=== PATIENT | female | born 1945 | race Caucasian/White ===

== ENCOUNTER 2017-10-04 10:46 | Inpatient (IN) | payer OTHER ==
[~2017-10-04] VITALS: Ht 162.6 cm; Wt 90.0 kg
[~2017-10-04 10:46] MED LIST: ALDACTONE25 MG PO; ALDACTONE50 MG PO; ASPIRIN81 M1 PO; BENICAR40 MG PO; BYSTOLIC10 MG PO; CARDIZEM CD,CA360 MG PO; CARDIZEM CD240 MG PO; CATAPRES-TTS 30.3 MG TD; CATAPRES-TTS 31 EACH TD; CATAPRES0.3 MG PO; CHILD ASPIRIN81 M1 PO; CHLORTHALIDONE25 MG PO; CIPROFLOXACIN500 M1 PO; CLONIDINE HCL0.1 MG PO; COLACE100 MG PO; CYMBALTA30 MG PO; CYMBALTA60 MG PO; Cardizem CD,Cartia X PO; Catapres-TTS 3 TD; DELTASONE10 MG PO; EFFIENT10 MG PO; EMS NITROSTAT0.4 M1 S; Ecotrin PO; Effient PO; FOLIC ACID; FOLVITE0.5 MG PO; HYGROTON25 MG PO; LABETALOL HCL200 MG PO; LABETALOL HCL300 MG PO; LASIX40 MG PO; LEVOFLOXACIN PO; LIVALO2 MG PO; Livalo PO; NIACIN100 MG PO; NITROGLYCERIN0.4 MG SL; NITROSTAT,NITR0.4 M1 SL; NORMODYNE,TRAN300 MG PO; OMEGA 3 1,0001 EACH PO; OMEGA-31000 MG PO; OXYCONTIN15 MG PO; PERCOCET 7.5-31 EACH PO; PHENERGAN12.5 M1 PO; PLAVIX75 MG PO; PRILOSEC20 MG PO; PROCARDIA10 MG PO; PROMETHAZINE12.5 M1 PO; PROVENTIL,2.5 MG/3 M IH; Proventil,Ventolin H IH; ROXICODONE15 MG PO; SINGULAIR10 MG PO; SPIRIVA1 INHALATI IH; Singulair PO; TRAMADOL HCL50 MG PO; TRICOR145 MG PO; Tylenol Regular Stre PO; VENTOLIN HFA18 GM IH; VENTOLIN17 GM IH; VYTORIN 10/41 TABLET PO; XANAX0.5 MG PO; XANAX1 MG PO; XANAX2 MG PO; Xanax PO; ZANTAC150 M1 PO; ZANTAC150 MG PO; ZANTAC300 MG PO; ZETIA10 MG PO; [UNRECOGNIZED DRUG - OTHER]
[2017-10-04 11:27] LABS: BASOPHIL (%) 0.4 % (0-1); EOSINOPHIL (%) 1.1 % (0-5); EOSINOPHIL COUNT 0.1 K/uL (0-0.3); HEMATOCRIT 29.5 % (36.0-46.0); HEMOGLOBIN 10.2 G/DL (11.9-15.5); IMMATURE GRANULOCYTE (%) 0.4 % (0.0-0.7); LYMPHOCYTE (%) 14.6 % (15-42); LYMPHOCYTE COUNT 1.1 K/uL (1.0-2.8); MCH 28.3 PG (29.0-34.0); MCHC 34.6 G/DL (30.0-36.0); MCV 81.9 FL (83-99); MONOCYTE (%) 8.5 % (3-12); MONOCYTE COUNT 0.6 K/uL (0-0.8); NEUTROPHIL COUNT 5.7 K/uL (1.8-6.4); PLATELET COUNT 249 K/uL (156-360); RBC DIS.WIDTH-CV 13.4 % (11.8-14.6); RBC DIS.WIDTH-SD 40.1 % (39-53); WHITE BLOOD COUNT 7.5 K/uL (4.1-10.2)
[2017-10-04 11:36] LABS: INTER. NORMALIZED RATIO 1.1
[2017-10-04 11:39] LABS: CHLORIDE 108 mEq/L (99-109); POTASSIUM 3.9 mEq/L (3.7-5.4); SODIUM 139 mEq/L (136-147)
[2017-10-04 11:41] LABS: GLUCOSE 102 mg/dL (70-99)
[2017-10-04 11:45] LABS: CREATININE 0.9 mg/dL (0.6-1.3); GFR ESTIMATE (CALCULATED) > 59 mL/min/; UREA NITROGEN (BUN) 19 mg/dL (9-23)
[2017-10-04 11:49] LABS: TROP-I INTERPRETATION INDETERMINATE; TROPONIN-I 0.36 ng/mL (0.0-0.30)
[2017-10-04 17:25] LABS: HEMATOCRIT 27.5 % (36.0-46.0); HEMOGLOBIN 9.6 G/DL (11.9-15.5); MCH 28.4 PG (29.0-34.0); MCHC 34.9 G/DL (30.0-36.0); MCV 81.4 FL (83-99); PLATELET COUNT 234 K/uL (156-360); RBC DIS.WIDTH-CV 13.5 % (11.8-14.6); RBC DIS.WIDTH-SD 39.9 % (39-53); RED BLOOD COUNT 3.38 M/uL (3.80-5.20); WHITE BLOOD COUNT 5.2 K/uL (4.1-10.2)
[2017-10-04 17:39] LABS: ALBUMIN 3.4 g/dL (3.2-4.8); CHLORIDE 105 mEq/L (99-109); POTASSIUM 3.9 mEq/L (3.7-5.4)
[2017-10-04 17:40] LABS: SODIUM 135 mEq/L (136-147)
[2017-10-04 17:42] LABS: GLUCOSE 102 mg/dL (70-99); TOTAL PROTEIN 7.2 g/dL (6.4-8.3)
[2017-10-04 17:44] LABS: TOTAL BILIRUBIN 0.5 mg/dL (0.0-1.0)
[2017-10-04 17:45] LABS: ALKALINE PHOSPHATASE 71 IU/L (3-129); CREATININE 0.8 mg/dL (0.6-1.3); GFR ESTIMATE (CALCULATED) > 59 mL/min/
[2017-10-04 17:47] LABS: AST (GOT) 57 IU/L (2-34); UREA NITROGEN (BUN) 15 mg/dL (9-23)
[2017-10-04 17:48] LABS: ALT (GPT) 14 IU/L (3-49)
[2017-10-04 18:58] LABS: TROP-I INTERPRETATION POSITIVE
[2017-10-04 19:09] LABS: TROPONIN-I 14.44 ng/mL (0.0-0.30)
[2017-10-04 22:00] VITALS: BP 157/57
[2017-10-05 00:54] LABS: TROP-I INTERPRETATION POSITIVE
[2017-10-05 01:28] LABS: TROPONIN-I 62.38 ng/mL (0.0-0.30)
[2017-10-05 03:30] VITALS: BP 100/43
[2017-10-05 05:46] LABS: BASOPHIL (%) 0.4 % (0-1); EOSINOPHIL (%) 0.5 % (0-5); HEMATOCRIT 25.2 % (36.0-46.0); HEMOGLOBIN 8.3 G/DL (11.9-15.5); IMMATURE GRANULOCYTE (%) 0.3 % (0.0-0.7); LYMPHOCYTE (%) 13.8 % (15-42); MCH 27.9 PG (29.0-34.0); MCHC 32.9 G/DL (30.0-36.0); MCV 84.6 FL (83-99); MONOCYTE (%) 11.3 % (3-12); MONOCYTE COUNT 0.8 K/uL (0-0.8); NEUTROPHIL (%) 73.7 % (45-76); NEUTROPHIL COUNT 5.5 K/uL (1.8-6.4); PLATELET COUNT 222 K/uL (156-360); RBC DIS.WIDTH-CV 13.9 % (11.8-14.6); RBC DIS.WIDTH-SD 42.8 % (39-53); RED BLOOD COUNT 2.98 M/uL (3.80-5.20); WHITE BLOOD COUNT 7.5 K/uL (4.1-10.2)
[2017-10-05 06:05] LABS: CHLORIDE 108 MEQ/L (99-109); CREATININE 0.8 MG/DL (0.6-1.3); GFR ESTIMATE (CALCULATED) > 59 mL/min/; GLUCOSE 88 mg/dL (70-99); POTASSIUM 3.9 MEQ/L (3.7-5.4); SODIUM 138 MEQ/L (136-147); UREA NITROGEN (BUN) 16 mg/dL (9-23)
[2017-10-05 08:24] VITALS: BP 120/57
[2017-10-05] MEDS ORDERED: RANITIDINE HCL150 MG PO (10:05)
[2017-10-05] MEDS ORDERED: XANAX1 MG PO (10:06)
[2017-10-05] MEDS ORDERED: OXYCODONE HCL20 M1 PO (10:06)
[2017-10-05] MEDS ORDERED: B-121000 MC2 PO (10:07)
[2017-10-05 11:57] VITALS: BP 137/65
[2017-10-05 13:27] LABS: C DIFF TOXIN NEGATIVE (NEGATIVE)
[2017-10-05 16:14] VITALS: BP 107/56
[2017-10-05 19:39] VITALS: BP 128/62
[2017-10-06] VITALS (7 sets, daily range): BP systolic 103–135; BP diastolic 44–86
[2017-10-06 05:45] LABS: BASOPHIL (%) 0.6 % (0-1); EOSINOPHIL (%) 3.9 % (0-5); EOSINOPHIL COUNT 0.2 K/uL (0-0.3); HEMATOCRIT 25.5 % (36.0-46.0); HEMOGLOBIN 8.2 G/DL (11.9-15.5); IMMATURE GRANULOCYTE (%) 0.4 % (0.0-0.7); LYMPHOCYTE COUNT 1.2 K/uL (1.0-2.8); MCH 27.7 PG (29.0-34.0); MCHC 32.2 G/DL (30.0-36.0); MCV 86.1 FL (83-99); MONOCYTE (%) 15.1 % (3-12); MONOCYTE COUNT 0.8 K/uL (0-0.8); NEUTROPHIL COUNT 2.9 K/uL (1.8-6.4); PLATELET COUNT 203 K/uL (156-360); RBC DIS.WIDTH-SD 43.6 % (39-53); RED BLOOD COUNT 2.96 M/uL (3.80-5.20); WHITE BLOOD COUNT 5.2 K/uL (4.1-10.2)
[2017-10-06 06:07] LABS: CHLORIDE 106 MEQ/L (99-109); CREATININE 0.9 MG/DL (0.6-1.3); GFR ESTIMATE (CALCULATED) > 59 mL/min/; GLUCOSE 88 mg/dL (70-99); SODIUM 137 MEQ/L (136-147); UREA NITROGEN (BUN) 19 mg/dL (9-23)
[2017-10-07 01:26] VITALS: BP 115/54
[2017-10-07 05:21] VITALS: BP 115/53
[2017-10-07 05:51] LABS: BASOPHIL (%) 0.7 % (0-1); EOSINOPHIL COUNT 0.2 K/uL (0-0.3); HEMATOCRIT 25.5 % (36.0-46.0); HEMOGLOBIN 8.3 G/DL (11.9-15.5); IMMATURE GRANULOCYTE (%) 0.2 % (0.0-0.7); LYMPHOCYTE (%) 20.4 % (15-42); LYMPHOCYTE COUNT 1.1 K/uL (1.0-2.8); MCH 28.1 PG (29.0-34.0); MCHC 32.5 G/DL (30.0-36.0); MCV 86.4 FL (83-99); MONOCYTE (%) 15.3 % (3-12); MONOCYTE COUNT 0.8 K/uL (0-0.8); NEUTROPHIL (%) 59.4 % (45-76); NEUTROPHIL COUNT 3.3 K/uL (1.8-6.4); PLATELET COUNT 211 K/uL (156-360); RBC DIS.WIDTH-CV 14.3 % (11.8-14.6); RBC DIS.WIDTH-SD 44.1 % (39-53); RED BLOOD COUNT 2.95 M/uL (3.80-5.20); WHITE BLOOD COUNT 5.5 K/uL (4.1-10.2)
[2017-10-07 06:16] LABS: CHLORIDE 104 MEQ/L (99-109); CREATININE 0.9 MG/DL (0.6-1.3); GFR ESTIMATE (CALCULATED) > 59 mL/min/; GLUCOSE 97 mg/dL (70-99); POTASSIUM 4.3 MEQ/L (3.7-5.4); SODIUM 135 MEQ/L (136-147); UREA NITROGEN (BUN) 18 mg/dL (9-23)
[2017-10-07 07:10] VITALS: BP 143/60
[2017-10-07 11:20] VITALS: BP 155/67
[2017-10-07] MEDS ORDERED: NICOTINE PATCH1 EAC1 TD (12:57)
[2017-10-07] MEDS ORDERED: FERROUS SULFAT325 MG PO (12:57)
[2017-10-07] MEDS ORDERED: CLOPIDOGREL75 MG PO (12:59)
[2017-10-07] MEDS ORDERED: LOSARTAN POTASS25 MG PO (13:00)
[2017-10-07] MEDS ORDERED: FUROSEMIDE40 MG PO (13:00)
[2017-10-07] MEDS ORDERED: DOCUSATE SODIU100 MG PO (13:01)
== END 2017-10-07 14:59 | disposition home health service (06) | DRG 247 ==
LOC: EME 10:46 → CATH 13:00 → EME 13:01 → 2SOUTH 15:30 → 4EAST 15:30 → ENRESERV 16:03 → 4EAST 22:02 → ENPENDDIS 10-07 → 4EAST 10-07 14:59
PROVIDERS: Emergency Medicine; Hospitalist; Internal Medicine; Internal Medicine Cardiovascular Disease
DX: I21.4 Non-ST elevation (NSTEMI) myocardial infarction (principal); I25.110 Atherosclerotic heart disease of native coronary artery with unstable angina pectoris; T82.855A Stenosis of coronary artery stent, initial encounter; I10 Essential (primary) hypertension; J44.9 Chronic obstructive pulmonary disease, unspecified; J96.10 Chronic respiratory failure, unspecified whether with hypoxia or hypercapnia; Z99.81 Dependence on supplemental oxygen; K44.9 Diaphragmatic hernia without obstruction or gangrene; Z86.74 Personal history of sudden cardiac arrest; D64.9 Anemia, unspecified; G47.30 Sleep apnea, unspecified; R73.01 Impaired fasting glucose; E78.5 Hyperlipidemia, unspecified; G89.29 Other chronic pain; R53.1 Weakness; R19.7 Diarrhea, unspecified; R10.13 Epigastric pain; R11.2 Nausea with vomiting, unspecified; I25.2 Old myocardial infarction; F17.210 Nicotine dependence, cigarettes, uncomplicated; Z95.810 Presence of automatic (implantable) cardiac defibrillator; Z87.11 Personal history of peptic ulcer disease; Z86.73 Personal history of transient ischemic attack (TIA), and cerebral infarction without residual deficits; Z79.82 Long term (current) use of aspirin; Z90.710 Acquired absence of both cervix and uterus; Z95.5 Presence of coronary angioplasty implant and graft; Z96.641 Presence of right artificial hip joint; Z96.653 Presence of artificial knee joint, bilateral; Z74.01 Bed confinement status; Z82.49 Family history of ischemic heart disease and other diseases of the circulatory system
CPT/HCPCS: 71045; 80048; 80053; 82948; 84484; 85025; 85027; 85347; 85610; 85730; 87493; 93005; 93306; 94640; 94760; 94799; 99281; 99285; A6214; C1725; C1769; C1874; C1887; C1894; J0360; J0583; J1644; J2250; J2405; J3010; J7030; J7050; Q0169